=== PATIENT | female | born 1980 | race African-American/Black ===

== ENCOUNTER → 2019-01-12 | Outpatient (CLI) | payer MEDICARE, MEDICAID ==
[2019-01-12 20:24] LABS: BACTERIA (WET MOUNT) 3+ BACTERIA SEEN; EPITHELIALS (WET MOUNT) 3+ EPITHELIALS SEEN; RBCS (WET MOUNT) 1+ RBCS SEEN; T.VAGINALIS (WET MOUNT) NO TRICHOMONAS SEEN; WBCS (WET MOUNT) NO WBCS SEEN; YEAST (WET MOUNT) NO YEAST SEEN
[2019-01-12 21:49] LABS: CHLAM PCR NOT DETECTED (NOT DETECT)
== END ==
LOC: LAB 20:09
PROVIDERS: ATTEND Nurse Practitioner Acute Care
DX: N89.8 Other specified noninflammatory disorders of vagina (principal); R30.0 Dysuria
CPT/HCPCS: 87086; 87210; 87491; 87591